=== PATIENT | male | born 1985 | race Caucasian/White ===

== ENCOUNTER 2021-03-14 17:55 | Emergency (ER) | payer BC ==
[2021-03-14] MEDS ORDERED: Sodium Chloride 0.9% 10 ML Syringe FLUSH PRN (18:17)
[2021-03-14] MEDS ORDERED: Ondansetron 4 MG/2 ML SDV IVPUSH ONE (18:24)
[2021-03-14] MEDS ORDERED: HYDROmorphone 0.5 MG/0.5 ML Syringe IVPUSH ONE (18:24)
[2021-03-14] MEDS ORDERED: Clindamycin Phosphate in D5W 900 MG in Premix Bag 1 BAG IV ONE ×2 (18:24)
[2021-03-14] MEDS ORDERED: Levofloxacin 750 MG Tab PO ONE (18:57)
[2021-03-14] MEDS ORDERED: Acetaminophen/HYDROcodone 325-5 MG Tab PO ONE (19:00)
--- NOTE | 2021-03-14 19:23 | CT ---
CT facial bones Technique: Multiple axial sections through the facial bones were obtained. Reconstructed coronal and sagittal images were obtained. Comparison: No prior facial bone study is available. Findings: 1.1 cm retention cyst is noted within the right maxillary sinus. Other portions of the maxillary sinuses are clear. Mastoid sinuses are also clear. There is destruction of the posterior molars within the right maxillary region. This presumably is due to dental disease. No additional acute dental abnormality is appreciated. No additional bony abnormality is seen. No discrete soft tissue abscess is seen. Haziness is noted within the subcutaneous tissues within the left side of the face raising the possibility of inflammatory change. Please correlate with the patient's symptoms. Several scattered dental caries are noted. Impression: 1. Probable dental disease within the posterior molars within the right axillary region. 2. Haziness within the left subcutaneous tissues of the face suspicious for inflammatory change. 3. Incidental retention cyst within the right maxillary sinus. 4. No definite abscess is seen on this exam. Diagnostic code #3
--- NOTE | 2021-03-14 19:27 | EDM.PDOC ---
ED HPI GENERAL MEDICAL PROBLEM - General Chief Complaint: ENT Problem Stated Complaint: DENTAL COMPLAINT SENT BY [facility] Time Seen by Provider: 03/14/21 18:05 Source of Information: Reports: Patient, RN Notes Reviewed History Limitations: Reports: No Limitations - History of Present Illness INITIAL COMMENTS - FREE TEXT/NARRATIVE: Patient is a 35-year-old male presenting to the emergency department with complaints of pain and swelling to his left face. Symptoms began this morning. He was evaluated at the dentist prior to coming here. They sent him here with a recommendation to receive a dose of IV antibiotics. He has a broken tooth in his left lower mouth that was identified as the cause of the infection. The dentist told him he had a buccal infection. He has had no fever chills. Denies any nausea or vomiting. He will be heading back home to [place] tomorrow and has an appointment to have the tooth removed on Thursday with his dentist. Treatments TILESETTER: Reports: Cold Therapy Left Cheek Pain Score (Numeric/FACES): 10 - Related Data Allergies Allergy/AdvReac Type Severity Reaction Status Date / Time No Known Allergies Allergy Verified 03/14/21 18:05 Home Meds: Home Meds Clindamycin HCl 300 mg PO TID 7 Days #21 capsule 03/14/21 [Rx] Hydrocodone/Acetaminophen [Hydrocodone-Acetamin 5-325 mg] 1 each PO Q4H PRN #12 tablet 03/14/21 [Rx] levoFLOXacin [Levaquin] 750 mg PO DAILY 6 Days #6 tab 03/14/21 [Rx] Past Medical History - Past Health History Medical/Surgical History: Denies Medical/Surgical History Social & Family History - Family History Family Medical History: No Pertinent Family History - Tobacco Use Tobacco Use Status *Q: Never Tobacco User Second Hand Smoke Exposure: No - Caffeine Use Caffeine Use: Reports: None - Recreational Drug Use Recreational Drug Use: No ED ROS ENT - Review of Systems Review Of Systems: See Below Constitutional: Reports: No Symptoms. Denies: Fever, Chills HEENT: Reports: Other (Dental pain and left facial swelling) Respiratory: Reports: No Symptoms Cardiovascular: Reports: No Symptoms Endocrine: Reports: No Symptoms GI/Abdominal: Denies: Nausea, Vomiting : Reports: No Symptoms Musculoskeletal: Reports: No Symptoms Skin: Reports: No Symptoms Neurological: Reports: No Symptoms Psychiatric: Reports: No Symptoms Hematologic/Lymphatic: Reports: No Symptoms Immunologic: Reports: No Symptoms ED EXAM, ENT - Physical Exam Exam: See Below General Appearance: Alert, Mild Distress Mouth/Throat: Other (Tooth 19 broken below the gumline. Surrounding buccal erythema and tenderness to palpation. Swelling to the left face particularly over the jaw with mild extension to below the jaw.) Respiratory/Chest: No Respiratory Distress, Lungs Clear, Normal Breath Sounds, No Accessory Muscle Use, Chest Non-Tender Cardiovascular: Normal Peripheral Pulses, Regular Rate, Rhythm, No Edema, No Gallop, No JVD, No Murmur, No Rub Neurological: Alert, Oriented, CN II-XII Intact, Normal Cognition, Normal Gait, Normal Reflexes, No Motor/Sensory Deficits Psychiatric: Normal Affect, Normal Mood Skin: Warm, Dry, Intact, Normal Color, No Rash Course - Vital Signs Last Recorded V/S: Last Vital Signs Temp 97.2 F 03/14/21 19:10 Pulse 111 H 03/14/21 18:06 Resp 18 03/14/21 19:10 BP 158/101 H 03/14/21 18:06 Pulse Ox 97 03/14/21 19:10 - Orders/Labs/Meds Orders: Active Orders 24 hr Category Date Time Status Peripheral IV Care [RC] . DIRECTED Care 03/14/21 18:17 Active Max Facial Sinus wo Cont [CT] Stat Exams 03/14/21 18:24 Ordered CBC WITH AUTO DIFF [HEME] Stat Lab 03/14/21 18:17 Ordered Sodium Chloride 0.9% [Saline Flush] Med 03/14/21 18:17 Active 10 ml FLUSH ASDIRECTED PRN Peripheral IV Insertion Adult [OM.PC] Stat Oth 03/14/21 18:17 Ordered Medication Orders Sodium Chloride (Sodium Chloride 0.9% 10 Ml Syringe) 10 ml FLUSH ASDIRECTED PRN PRN Reason: Keep Vein Open Last Admin: 03/14/21 18:40 Dose: 10 ml Documented by: SALLY Labs: Laboratory Tests 03/14/21 03/14/21 Range/Units 18:35 18:35 WBC 12.15 H (4.23-9.07) K/mm3 RBC 4.74 (4.63-6.08) M/mm3 Hgb 15.6 (13.7-17.5) gm/dl Hct 43.8 (40.1-51.0) % MCV 92.4 H (79.0-92.2) fl MCH 32.9 H (25.7-32.2) pg MCHC 35.6 H (32.2-35.5) g/dl RDW Std Deviation 39.6 (35.1-43.9) fL Plt Count 262 (163-337) K/mm3 MPV 10.0 (9.4-12.3) fl Neut % (Auto) 69.4 H (34.0-67.9) % Lymph % (Auto) 18.1 L (21.8-53.1) % [place] % (Auto) 10.8 (5.3-12.2) % Eos % (Auto) 1.2 (0.8-7.0) Baso % (Auto) 0.2 (0.1-1.2) % Neut # (Auto) 8.43 H (1.78-5.38) K/mm3 Lymph # (Auto) 2.20 (1.32-3.57) K/mm3 [place] # (Auto) 1.31 H (0.30-0.82) K/mm3 Eos # (Auto) 0.15 (0.04-0.54) K/mm3 Baso # (Auto) 0.02 (0.01-0.08) K/mm3 Sodium 140 (136-145) mEq/L Potassium 3.3 L (3.5-5.1) mEq/L Chloride 101 (98-107) mEq/L Carbon Dioxide 31 (21-32) mEq/L Anion Gap 11.3 (5-15) BUN 12 (7-18) mg/dL Creatinine 1.0 (0.7-1.3) mg/dL Est Cr Clr Drug Dosing 129.65 mL/min Estimated GFR (MDRD) > 60 (>60) mL/min BUN/Creatinine Ratio 12.0 L (14-18) Glucose 98 (70-99) mg/dL Calcium 9.2 (8.5-10.1) mg/dL Total Bilirubin 1.3 H (0.2-1.0) mg/dL AST 21 (15-37) U/L ALT 32 (16-63) U/L Alkaline Phosphatase 84 (46-116) U/L Total Protein 8.4 H (6.4-8.2) g/dl Albumin 4.3 (3.4-5.0) g/dl Globulin 4.1 gm/dL Albumin/Globulin Ratio 1.1 (1-2) Meds: Medications Generic Name Dose Route Start Last Admin Trade Name Lonnie PRN Reason Stop Dose Admin Sodium Chloride 10 ml 03/14/21 18:17 03/14/21 18:40 Sodium Chloride 0.9% 10 Ml Syringe FLUSH 10 ml ASDIRECTED PRN Administration Keep Vein Open Discontinued Medications Generic Name Dose Route Start Last Admin Trade Name Lonnie PRN Reason Stop Dose Admin Hydrocodone Bitart/Acetaminophen 2 tab 03/14/21 19:00 03/14/21 19:08 Acetaminophen/Hydrocodone 325-5 Mg Tab PO 03/14/21 19:01 2 tab ONETIME ONE Administration Hydromorphone HCl 0.5 mg 03/14/21 18:24 03/14/21 18:37 Hydromorphone 0.5 Mg/0.5 Ml Syringe IVPUSH 03/14/21 18:25 0.5 mg ONETIME ONE Administration Clindamycin Phosphate 900 mg/ 50 mls @ 100 mls/hr 03/14/21 18:24 03/14/21 18:41 Premix IV 03/14/21 18:53 100 mls/hr ONETIME ONE Administration Levofloxacin 750 mg 03/14/21 18:57 03/14/21 19:09 Levofloxacin 750 Mg Tab PO 03/14/21 18:58 750 mg ONETIME ONE Administration Ondansetron HCl 4 mg 03/14/21 18:24 03/14/21 18:37 Ondansetron 4 Mg/2 Ml Sdv IVPUSH 03/14/21 18:25 4 mg ONETIME ONE Administration - Re-Assessments/Exams Free Text/Narrative Re-Assessment/Exam: Patient is a 35-year-old male presenting to the emergency department with complaints of painful left-sided dental infection. On exam, he does have a fracture of tooth 19 below the gumline with surrounding erythema and swelling. There is no obvious abscess formation. I have ordered clindamycin 900 mg IV, Dilaudid 0.5 mg IV, Zofran 4 mg IV, and a maxillofacial CT. 03/14/21 19:[address] shows probable dental disease within the posterior molars within the right axillary region. There is also haziness in the left subcutaneous tissues of face suspicious for inflammatory change. There is no abscess. I will add Levaquin 755 mg daily to the regimen of clindamycin. I will give him hydrocodone 2 tabs now and then send prescription for this. Recommend routine ibuprofen. Discussed return precautions. Discharge instructions as documented. Departure - Departure Time of Disposition: 19:29 Disposition: Home, Self-Care 01 Condition: Good Clinical Impression: Infected dental caries - Discharge Information *PRESCRIPTION DRUG MONITORING PROGRAM REVIEWED*: Yes *COPY OF PRESCRIPTION DRUG MONITORING REPORT IN PATIENT SANIYA: No Prescriptions: Clindamycin HCl 300 mg PO TID 7 Days #21 capsule Hydrocodone/Acetaminophen [Hydrocodone-Acetamin 5-325 mg] 1 each PO Q4H PRN #12 tablet PRN Reason: Pain levoFLOXacin [Levaquin] 750 mg PO DAILY 6 Days #6 tab Referrals: PCP,None [Primary Care Provider] - Additional Instructions: You were seen in the emergency department today for evaluation of left facial swelling due to a dental infection. Work-up included blood work and a CT scan of your maxillofacial bones. There is no evidence of abscess on the CT scan. While in the ER, you received clindamycin through an IV as well as your first dose of Levaquin. Both of these are antibiotics. Prescriptions for clindamycin and Levaquin have been sent to your pharmacy. Take these as prescribed starting tomorrow. Recommend routine ibuprofen for the next few days. For pain not relieved by this, a prescription for hydrocodone with Tylenol has been provided. Take this only as prescribed. Do not work or drive for 12 hours after taking this as it can be sedating. Symptoms should begin to improve over the next 24 to 48 hours. If you experience any worsening symptoms, please not hesitate to return to the emergency department. Sepsis Event Note (ED) - Evaluation Sepsis Screening Result: No Definite Risk - Focused Exam Vital Signs: Vital Signs Temp Pulse Resp BP Pulse Ox 03/14/21 19:10 97.2 F 18 97 03/14/21 18:06 98.0 F 111 H 14 158/101 H 100 - My Orders Last 24 Hours: My Active Orders 03/14/21 18:17 Peripheral IV Care [RC] . DIRECTED CBC WITH AUTO DIFF [HEME] Stat Sodium Chloride 0.9% [Saline Flush] 10 ml FLUSH ASDIRECTED PRN Peripheral IV Insertion Adult [OM.PC] Stat 03/14/21 18:24 Max Facial Sinus wo Cont [CT] Stat - Assessment/Plan Last 24 Hours: My Active Orders 03/14/21 18:17 Peripheral IV Care [RC] . DIRECTED CBC WITH AUTO DIFF [HEME] Stat Sodium Chloride 0.9% [Saline Flush] 10 ml FLUSH ASDIRECTED PRN Peripheral IV Insertion Adult [OM.PC] Stat 03/14/21 18:24 Max Facial Sinus wo Cont [CT] Stat
== END 2021-03-14 19:47 | disposition home or self-care (01) ==
LOC: JD.ED 17:55
DX: K04.7 Periapical abscess without sinus (principal); K02.9 Dental caries, unspecified
CPT/HCPCS: 36415; 70486; 80053; 85025; 96365; 96375; 99283; A9270; J1170; J2405; J3490; 99284